=== PATIENT | male | born 1975 | race Caucasian/White ===

== ENCOUNTER 2020-01-17 09:08 | Inpatient (IN) ==
[2020-01-17] MEDS ORDERED: NS 1,000 ML IV ONE ×2 (09:32→11:15)
[2020-01-17] MEDS ORDERED: LOPRESSOR IV ONE (09:32)
--- NOTE | 2020-01-17 09:42 | PROVIDER DOCUMENTATION ---
HPI-General Adult - General Chief Complaint: Palpitations Stated Complaint: palipations Time Seen by Provider: 01/17/20 09:21 Source: patient Allergies/Adverse Reactions: Patient Allergies Allergy/AdvReac Type Severity Reaction Status Date / Time Sulfa (Sulfonamide Allergy RASH Verified 01/17/20 09:41 Antibiotics) Home Medications: Home Medication List Medication Instructions Recorded Confirmed Last Taken Type Lisinopril 5 mg PO DAILY 08/10/19 01/17/20 01/16/20 History Metformin HCl 1,000 mg PO BID 08/10/19 01/17/20 01/16/20 History Metoprolol [Lopressor] 25 mg PO BID PRN #10 tab 08/10/19 01/17/20 01/17/20 Rx Sitagliptin [Januvia] 50 mg PO DAILY 08/10/19 01/17/20 01/15/20 History Ibuprofen 800 mg PO PRN PRN 01/17/20 01/17/20 01/16/20 History - History of Present Illness -Gen Adult Nature of Presenting Problems: 44 YOU MALE REPORTS TACHYPALITATIONS YESTERDAYA ND TODAY. MORE NOTICABLE W/ EX CERTION. PRIOR HX A FIB AND NOT ON ANTICOAGULANTS. CARDOLOGIST DR PÉREZ. TAKES METOPROLOL 25MG PRN BASIS, DM TxED W/ JANUVIA AND METFORMIN. NON-SMOKER. DENIES FEVER OR ILLNESS. NO CP, SL SOB. Review of Systems - Adult - REVIEW OF SYSTEMS - ADULT Constitutional: reports: no symptoms reported, fatique. denies: chills, fever Eyes: reports: no symptoms reported Ears, Nose, Mouth & Throat: reports: no symptoms reported Cardiovascular: reports: no symptoms reported. denies: chest pain, edema Respiratory: reports: no symptoms reported. denies: cough, wheezing Gastrointestinal: reports: no symptoms reported Genitourinary: reports: no symptoms reported Musculoskeletal: reports: no symptoms reported Integumentary: reports: no symptoms reported Neurological: reports: no symptoms reported Psychiatric: reports: no symptoms reported Endocrine: reports: no symptoms reported Hematologic/Lymphatic: reports: no symptoms reported Allergic/Immunologic: reports: no symptoms reported All Other Systems: Reviewed and Negative Past History - Adult - PAST MEDICAL HISTORY-ADULT Review of Records: reports: Old Records Reviewed, Nursing Assessment Review, Medications Reviewed, Social history reviewed & non-contributory. Major Childhood Illnesses: reports: denies history Cardiovascular: reports: denies history, A-Fib (PAST EPISODES) Respiratory: reports: denies history Gastrointestinal: reports: denies history Obstetrical/Gynecological: reports: denies history Genitourinary: reports: denies history Musculoskeletal: reports: denies history Neurological: reports: denies history Endocrine/Immune: reports: denies history Other Conditions: reports: denies history Physical Exam-General - PHYSICAL EXAM-ADULT Initial Vital Signs Reviewed: Yes - CONSTITUTIONAL General Appearance: appears well, alert, no apparent distress - EYES Eyes: PERRL/EOMI - HEAD, EARS, NOSE, MOUTH & THROAT HENMT: normocephalic/atraumatic, moist mucous membranes - NECK Neck: non-tender, full range of motion, supple - RESPIRATORY Respiratory: lungs clear, normal breath sounds, no respiratory distress, no accessory muscle use - CARDIOVASCULAR Cardiovascular: no edema, tachycardia - CHEST (BREASTS) Chest/Breast: other (CHRONIC CHEST ASYMETRY, NON-TENDER) - GASTROINTESTINAL (ABDOMEN) Abdominal Exam: non tender, soft - MUSCULOSKELETAL Extremity: normal range of motion, non-tender, normal gait, normal inspection, no pedal edema, no calf tenderness - SKIN Integumentary: normal color, normal turgor, warm/dry. 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, grossly normal, no motor/sensory deficits - PSYCHIATRIC Psych/Mental Status: normal mood/affect, normal thought content, normal thought process, oriented x 3 Progress - PLAN OF CARE/RESULTS Progress/Plan/Lab Results: Vital Signs - 8 hr 01/17/20 09:13 Temperature 97.1 F L Pulse Rate 139 H Respiratory Rate 20 Blood Pressure 118/92 O2 Sat by Pulse Oximetry 98 Orders Category Date Time Status Cardiac Monitoring DIRECTED Care 01/17/20 09:28 Active NEWS Score 2-4:Order NEWS Lactate Series NOW Care 01/17/20 09:21 Active Saline Loc NOW Care 01/17/20 09:28 Active CHEST-2 VIEWS [RAD] Stat Exams 01/17/20 09:30 Ordered BASIC METABOLIC PANEL [CHEM] Stat Lab 01/17/20 09:29 Ordered CBC WITH ELECTRONIC DIFF [HEME] Stat Lab 01/17/20 09:29 Uncollected D-DIMER [COAG] Stat Lab 01/17/20 09:29 Ordered LACTATE, PLASMA [CHEM] Stat Lab 01/17/20 09:29 Uncollected MAGNESIUM [CHEM] Stat Lab 01/17/20 09:29 Ordered TROPONIN T HIGH SENSITIVITY Stat Lab 01/17/20 09:30 Uncollected URINALYSIS W/POSS RFLX CULT [URINALYSIS] Stat Lab 01/17/20 09:30 Uncollected URINE DRUG SCREEN Stat Lab 01/17/20 09:30 Uncollected 0.9% Sodium Chloride Inj [Ns] 1,000 ml Med 01/17/20 09:32 Active IV 999 mls/hr Metoprolol [Lopressor] Med 01/17/20 09:32 Discontinued 5 mg IV NOW ONE EKG [EKG] Stat Ther 01/17/20 09:29 Ordered Result Diagrams: 01/17/20 09:56 01/17/20 15:13 - REASSESSMENT Reassessment #1 Time Reassessed: 11:08 Status: unchanged (AFTER 1 LITER NS AND LOPRESSOR 5MG: HR 139 IN FLUTTER AND SYS 91. LABS YET PENDING. DENIES CP OR SOB WHILE SUPINE.) Reassessment #2 Time Reassessed: 12:27 Status: unchanged (LAB HAD TO BE REDRAWN AND FINALLY GOT BACK K OF 6.1, Na 131, BS 364 BUT NOT IN DKA, pH 7.38. ABC 8.1, D-DIM NOT ELEVATED. STILL IN FLUTTER 143/min. ?DURATION OF FLUTTER, IS NOT ANTICOAGULATED, GIVING 1/2 AMP BICARB AND CALLING CARDIOLOGY A FLUTTER PERSISTS.) - EKG 1 Time of EKG reading by physician:: 09:19 EKG Read and Signed by:: Yohannes Carney EKG Interpretation (*Must complete 3 of following elements*): Abnormal Rate: 135 Rhythm: FLUTTER [place]: normal QRS: normal [place] Interval: normal ST Wave: non-specific ST changes (A FLUTTER AT 135/MIN) - CONSULTS/PCP/HOSPITALIST Notification #1 *Consult/PCP/Hospitalist*: dr Rodgers Time Discussed: 15:00 Consult Disposition: Admit Departure - Departure Date of Disposition Decision: 01/17/20 Time of Disposition Decision: 15:00 DIAGNOSIS: Tachycardia with heart rate 121-140 beats per minute, Atrial flutter with rapid ventricular response Disposition: ADMITTED INPATIENT 09 Certified Medical Emergency: Emergent Condition: Fair - Critical Care Note This patient required my direct & personal management of CC.: Yes Total Time (mins): 30 Critical Care Statement: This patient required my direct personal management to treat or rule out processes, the absence of which, could potentiallly result in sudden, clinically significant life or limb threatening deterioration. Attestation - Physician/ BRIONNA Attestation Patient care was provided by Advanced Practice Provider:: No The physician spent face to face time with patient:: Yes Advanced Practice Provider documentation review:: Supervising physician onsite and consulted in the evaluation and care of this patient. The physician did have a face to face encounter with the patient.
--- NOTE | 2020-01-17 10:09 | Diag Imaging Result Doc PS360 ---
EXAM: CHEST-2 VIEWS INDICATION: short of breath TECHNIQUE: 2 views COMPARISON: 08/10/2019 FINDINGS: The lungs are grossly clear. There is no discrete pleural fluid collection or pneumothorax. The cardiomediastinal silhouette and central vasculature are grossly unremarkable. IMPRESSION: No evidence of acute pathology by plain radiograph. Electronically signed by Jeffry Segura 01/17/2020 10:07 AM
[2020-01-17 10:38] LABS: URINE SOURCE CLEAN CATCH
[2020-01-17 10:55] LABS: BILIRUBIN URINE NEGATIVE (NEGATIVE); BLOOD URINE NEGATIVE (NEGATIVE); COLOR YELLOW; GLUCOSE URINE >1000 mg/dL (NEGATIVE); KETONE URINE 20 mg/dL (NEGATIVE); LEUKOCYTES URINE NEGATIVE (NEGATIVE); NITRITE URINE NEGATIVE (NEGATIVE); PROTEIN URINE NEGATIVE (NEGATIVE); SP GRAVITY URINE 1.025; TURBIDITY URINE CLEAR (CLEAR); UR AMPHETAMINES QUAL NONE DETECTED (NONE DETECT); UR BARBITUATES QUAL NONE DETECTED (NONE DETECT); UR BENZODIAZEPIN QUAL NONE DETECTED (NONE DETECT); UR CANNABINOIDS QUAL NONE DETECTED (NONE DETECT); UR COCAINE QUAL NONE DETECTED (NONE DETECT); UR METHADONE QUAL NONE DETECTED (NONE DETECT); UR OPIATES QUAL NONE DETECTED (NONE DETECT); UR OXYCODONE QUAL NONE DETECTED (NONE DETECT); UR PCP QUAL NONE DETECTED (NONE DETECT); UROBILINOGEN URINE NORMAL (NORMAL)
[2020-01-17 11:31] LABS: UR EPITHELIAL CELLS <10 /HPF (<10); URINE BACTERIA NEGATIVE /HPF; URINE RBC <10 /HPF (<10); URINE WBC <10 /HPF (<10)
[2020-01-17 11:45] LABS: URINE CRYSTALS NONE SEEN
[2020-01-17 11:46] LABS: ALLEN TEST NO; BE -4.5 mmoll (-3.0-3.0); BLOOD TYPE ARTERIAL; HCO3-(ACT) 21.3 mmoll (20.0-26.0); METHB 1.1 % (0.0-1.5); O2(CT) 23.7 mL/dL (15.0-23.0); O2HB 95.3 % (95.0-99.0); PCO2(98.6) 33 mmHg (35-45); PO2(98.6) 84 mmHg (60-100); SAMPLE BLOOD; SAO2 98.2 % (95.0-100.0); THB 17.7 g/dL (11.5-17.4); pH(98.6) 7.38 (7.35-7.45)
[2020-01-17 11:47] LABS: MODALITY ROOM AIR
[2020-01-17 11:56] LABS: BASO# 0.05 X1000 (0.0-0.2); BASO% 0.6 % (0.0-0.8); EOS# 0.48 X1000 (0.0-0.7); EOS% 5.9 % (0.0-10.0); HEMATOCRIT 51.4 % (42.0-52.0); HEMOGLOBIN 17.4 g/dL (14.0-18.0); LYMPH# 1.16 X1000 (1.2-3.4); LYMPH% 14.2 % (20.5-51.1); MCH 30.3 PG (27-31); MCHC 33.9 g/dL (33-37); MCV 89.5 FL (81-99); MONO# 0.82 X1000 (0.11-0.59); MPV 11.9 FL (7.4-10.4); NEUT# 5.66 X1000 (1.4-6.5); NEUT% 69.3 % (42.2-75.2); PLT 296 X1000 (130-400); RBC 5.74 XMIL (4.7-6.1); RDW 13.4 % (11.5-14.5); WBC 8.17 X1000 (4.8-10.8)
[2020-01-17 11:57] LABS: AGAP 9; BUN 17 mg/dL (8-22); CALCIUM 8.6 mg/dL (8.8-10.2); CHLORIDE 96 mmol/L (98-107); COSMO 279; ESTIMATED GFR > 60; GLUCOSE 364 mg/dL (70-104); SODIUM 131 mmol/L (136-145); TCO2 26 mmol/L (25-35)
[2020-01-17 11:58] LABS: POTASSIUM 6.1 mmol/L (3.5-5.1)
[2020-01-17] MEDS ORDERED: SODIUM BICARBONATE 8.4% IV ONE (12:25)
[2020-01-17] MEDS ORDERED: HUMULIN R IV ONE (12:34)
[2020-01-17] MEDS ORDERED: CARDIZEM 100 MG/NS 100 MG/100 ML IVPB IV SCH (13:00)
[2020-01-17] MEDS ORDERED: NEO-SYNEPHRINE 50 MG in NS 250 ML IV SCH (13:00)
[2020-01-17] MEDS ORDERED: LOPRESSOR PO PRN (15:23)
[2020-01-17] MEDS ORDERED: ZOFRAN IV PRN (15:23)
[2020-01-17 15:41] LABS: AGAP 12; BUN 15 mg/dL (8-22); CALCIUM 8.6 mg/dL (8.8-10.2); CHLORIDE 101 mmol/L (98-107); COSMO 278; CREATININE 0.9 mg/dL (0.7-1.2); ESTIMATED GFR > 60; GLUCOSE 232 mg/dL (70-104); POTASSIUM 4.5 mmol/L (3.5-5.1); SODIUM 135 mmol/L (136-145); TCO2 22 mmol/L (25-35)
[2020-01-17] MEDS ORDERED: COREG PO ONE (15:43)
--- NOTE | 2020-01-17 16:13 | EKG Report ---
Test Performed on : 01/17/2020 2:58:54 PM Test Reason : TACHYCARD Blood Pressure : / mmHG Vent. Rate : 060 BPM Atrial Rate : 060 BPM P-R Int : 156 ms QRS Dur : 084 ms QT Int : 436 ms P-R-T Axes : 052 090 057 degrees QTc Int : 436 ms Normal sinus rhythm. Rightward axis Nonspecific ST abnormality Abnormal ECG When compared with ECG of 17-JAN-2020 09:19, (Unconfirmed) Sinus rhythm. has replaced Atrial flutter. Vent. rate has decreased BY [address] no longer depressed in Inferior leads Nonspecific T wave abnormality now evident in Anterior leads Unconfirmed Result
--- NOTE | 2020-01-17 16:56 | HISTORY AND PHYSICAL ---
CHIEF COMPLAINT: Rapid heart rate and feeling weak. HISTORY OF PRESENT ILLNESS: Mr. Seo is a 44-year-old white male followed by Dr. Titi Ma for type 2 diabetes. He presented around noon today with a 24-hour history of rapid heart rate and feeling weak. His initial EKG documented atrial flutter with rapid ventricular response. The ER physician started IV Cardizem and dropped his rate to 95 to 100. He also has a history of one previous episode of paroxysmal atrial fibrillation in August of last year. He was seen in the emergency room and referred to Dr. Moore at the [facility]. He subsequently underwent echocardiography and a nuclear GXT which were both okay except for a suspected left to right shunt with Valsalva maneuver. His atrial flutter persisted until about 3:15 this afternoon when he converted to sinus rhythm while on the IV Cardizem. This has been stopped. His blood pressure remains low at 80 to 90 systolic blood pressure lying supine. PAST MEDICAL HISTORY: Approximately three years ago he was diagnosed with adult onset diabetes mellitus and has been on metformin and Januvia since. He states he has been out of his fingerstick strips for three to four weeks and has not checked his blood sugar at home. He denies any previous overnight hospital stay with has had outpatient knee surgery. HOME MEDICATIONS: 1. Metformin 1000 mg twice a day. 2. Januvia 50 mg daily. 3. Metoprolol 25 mg twice a day as needed for palpitations and took two doses of this yesterday and one dose this morning. SOCIAL HISTORY: He is single and has no children. He works as a mechanical contractor. He says he quit smoking approximately five years ago. He drank alcohol regularly until his episode of atrial fibrillation and then stopped for several months but resumed recently and has been drinking approximately a six-pack of beer daily. He denies any previous difficulty with abstinence such as tremulousness or hallucinations. REVIEW OF SYSTEMS: GENERAL: He has felt well without any fever, chills, night sweats or weight loss. HEENT: Vision and hearing are adequate without recent changes. RESPIRATORY: No cough, shortness of breath, sputum production, dyspnea on exertion. CARDIOVASCULAR: No history of ischemic heart disease. No history of congestive heart failure or valvular heart disease. No previous syncope or near syncope. GI: Appetite has been adequate. He denies any nausea, vomiting, diarrhea, constipation, or liver disease. : No difficulty voiding. No hematuria or dysuria. ENDOCRINE: No history of thyroid disease. TSH in August was normal. MUSCULOSKELETAL: No arthritis or other joint pain. NEUROPSYCHIATRIC: No history of seizures or strokes. No history of mood disorders. PHYSICAL EXAMINATION: VITAL SIGNS: Blood pressure initially 118/92 now 91/75 after IV Cardizem. His heart rate was initially 143 and now is 80 with normal sinus rhythm on the monitor. Respiratory rate is 16. O2 saturation is 98% on room air. GENERAL APPEARANCE: Middle aged gentleman with a goatee who is alert and cooperative and in no acute distress. HEENT: Pupils are equal, round and reactive to light. Extraocular movements intact. NECK: Supple with normal thyroid and no adenopathy. LUNGS: Clear to auscultation anteriorly and posteriorly. CARDIOVASCULAR: Regular rate and rhythm. No S3 or murmurs are heard. ABDOMEN: Soft and flat with active bowel sounds. EXTREMITIES: No edema. His pedal pulses are very faint in the right foot and absent in the left foot. LABORATORY DATA: CBC is normal. Chemistry profile initially had a potassium of 6.1, but repeat was sodium 135, potassium 4.5, BUN 15, creatinine 0.9, glucose 232. Troponin is slightly elevated at 102. Lactate was 1.1 on his ABG, which otherwise was normal. ASSESSMENT: 1. Paroxysmal atrial flutter with a duration of approximately 24 hours. He also has a history of paroxysmal atrial fibrillation. 2. Diabetes mellitus, probably type 2 although his lean phenotype is somewhat unusual for this. He may be a closet type 1 diabetic, so will get a fasting insulin level tomorrow morning. Will get a C peptide in the morning. TREATMENT PLAN: Will admit to the medical floor now since his arrhythmia has converted. His Cardizem drip has been stopped. Will request a Cardiology consult with consideration of Electrophysiology referral for evaluation for a potential ablation. His ETOH intake is likely a factor in his arrhythmia. Will change his metoprolol to carvedilol for diabetes. cc: Edward Rodgers MD
[2020-01-17] MEDS: NS 1,000 ML IV SCH (17:50)
[2020-01-17] MEDS ORDERED: LOVENOX SUBQ SCH (18:00)
[2020-01-17] MEDS: HUMALOG SUBQ SCH ×2 (18:42→21:16)
[2020-01-17] MEDS: GLUCOPHAGE PO SCH (20:50)
[2020-01-18] MEDS: COREG PO SCH ×2 (00:58→09:45)
[2020-01-18] MEDS: NS 1,000 ML IV SCH (06:03)
[2020-01-18 06:12] LABS: AGAP 12; ALB/GLOB RATIO 2.5; ALBUMIN 3.3 g/dL (3.5-5.0); ALKALINE PHOSPHATASE 43 U/L (32-122); BUN 13 mg/dL (8-22); CALCIUM 8.4 mg/dL (8.8-10.2); CHLORIDE 103 mmol/L (98-107); CK PROFILE 83 U/L (24-204); COSMO 280; CREATININE 0.9 mg/dL (0.7-1.2); ESTIMATED GFR > 60; GLUCOSE 173 mg/dL (70-104); GOT 7 U/L (10-34); GPT 9 U/L (10-44); POTASSIUM 4.5 mmol/L (3.5-5.1); SODIUM 138 mmol/L (136-145); TCO2 23 mmol/L (25-35); TOTAL PROTEIN 4.6 g/dL (6.3-8.3)
[2020-01-18] MEDS: HUMALOG SUBQ SCH (06:40)
[2020-01-18] MEDS ORDERED: PRINIVIL PO SCH (09:00)
[2020-01-18] MEDS ORDERED: JANUVIA PO SCH (09:00)
--- NOTE | 2020-01-18 09:30 | EKG Report ---
Test Performed on : 01/18/2020 09:19:41 AM Test Reason : tachycardia Blood Pressure : / mmHG Vent. Rate : 058 BPM Atrial Rate : 058 BPM P-R Int : 130 ms QRS Dur : 092 ms QT Int : 448 ms P-R-T Axes : 065 081 073 degrees QTc Int : 439 ms Sinus bradycardia. Otherwise normal ECG When compared with ECG of 17-JAN-2020 14:58, (Unconfirmed) No significant change was found Confirmed by Delmer Ma MD ([id number]) on 01/19/2020 7:37:33 PM
[2020-01-18] MEDS: GLUCOPHAGE PO SCH (09:45)
[2020-01-18] MEDS ORDERED: ASPIRIN PO SCH (10:15)
--- NOTE | 2020-01-18 10:45 | CONSULTATION ---
DATE OF CONSULTATION: 01/18/2020 IMPRESSION: 1. Episode of atrial flutter with rapid ventricular rate spontaneously converted back to sinus rhythm. Patient has history of sporadic palpitations perhaps once of twice a month of more limited duration. 2. Type 2 diabetes mellitus. 3. Excessive alcohol consumption at a rate of 6 pack of beer daily. RECOMMENDATIONS: 1. Favor staying with metoprolol given absence of hypertension and tendency for relatively lower blood pressure already evident on MISTY inhibitor prescribed for renal protection with his diabetes. 2. Chads Vasc score limited at 1. Suggest aspirin p.o. daily. 3. Reasonable for patient to be discharged since he converted back to sinus rhythm. I will see him again in approximately 2 weeks. At this point, consider possible referral for electrophysiology consult and possible ablation. 4. Curbing alcohol intake strongly advised. HISTORY: This 44-year-old, white male with past history of recurrent palpitations and type 2 diabetes mellitus, was admitted to the emergency room for management of atrial flutter with rapid ventricular rate. He relates that he started having palpitations the day before yesterday that were rather persistent. There are no other associated symptoms. He came to emergency room and was found to be in atrial flutter with rapid ventricular rate. He was started on intravenous Cardizem. He has converted back to sinus rhythm spontaneously yesterday afternoon. He continues asymptomatic from a cardiovascular standpoint. He has history of previous atrial tachyarrhythmia last fall, noninvasive cardiac evaluation was negative with exception of possible [id number] intracardiac shunt following Valsalva maneuver, potentially related to a small PFO. PAST MEDICAL HISTORY: 1. Adult onset diabetes mellitus. 2. Chronic regular alcohol use, a six-pack of beer daily. 3. Status post unspecified knee surgery. ALLERGIES: He is allergic or intolerant to sulfa. MEDICATIONS PRIOR TO ADMISSION: As listed. SOCIAL HISTORY: He works doing mechanical work. He drinks 6 pack of beer daily. FAMILY HISTORY: Negative for premature coronary disease. REVIEW OF SYSTEMS: Pulmonary: Negative. Gastrointestinal: Negative. Constitutional: Negative. Remaining review of systems negative/noncontributory with 14 total systems reviewed. PHYSICAL EXAMINATION: General: Reveals an adult white male in no distress. Vital signs: Blood pressure 101/52, heart rate 64 and regular with ECG monitor showing sinus rhythm. Oxygen saturation 98% on room air. HEENT: Extraocular movements intact. Mucous membranes are moist. Neck: Supple. No jugular venous distention. There are no carotid bruits. Chest: Clear to auscultation. Cardiac Exam: Reveals a regular rate and rhythm without appreciable murmur or gallop. Abdomen: Soft. Bowel sounds normal. Extremities: Without edema. Neurologic: Alert and fully oriented. Speech is fluent. Moves all 4 extremities equally well. Skin: Warm and dry. Psychiatric: Reveals mood to be appropriate. DIAGNOSTIC DATA: A 12 lead EKG demonstrates sinus rhythm and is within normal limits. LABORATORY DATA: Includes sodium 138, potassium 4.5, chloride 103, carbon dioxide 23, BUN 13, creatinine 0.9, glucose 173. Initial troponin T 102. Follow-up troponin T 220. CPK 83. Followup CPK pending. White blood cell count 8.17, hematocrit 51.4, hemoglobin 17.4, platelet count 296. cc: MD Edward Samson MD
[2020-01-18 12:32] VITALS: BP 107/65
[2020-01-18] MEDS ORDERED: LOPRESSOR PO SCH (21:00)
--- NOTE | 2020-01-19 08:43 | DISCHARGE SUMMARY ---
ADMISSION DATE: 01/17/2020 DISCHARGE DATE: 01/18/2020 FINAL DIAGNOSES: 1. Atrial flutter with rapid ventricular rate. 2. Type 2 diabetes mellitus. 3. Excessive alcohol use. PRESENT ILLNESS: Mr. Seo is a 44-year-old white male with a history of recurrent palpitations and type 2 diabetes mellitus. He presented to the emergency room on the day of admission with approximately 24 hour history of rapid heart rate and was determined to be in atrial flutter with ventricular response of approximately 135 although his conduction alternated between 2:1 and 3:1. He denied any shortness of breath, chest pain, or near syncope. He related a 3 year history of type 2 diabetes mellitus treated with metformin and Januvia. Because of his previous palpitations, he had been previously evaluated by Dr. Moore at the [facility]. Physical examination revealed a slender, middle-aged gentleman in no acute distress. Lungs were clear. Cardiac exam: Irregularly irregular rhythm with tachycardia but no S3 or murmurs. Electrocardiogram confirmed atrial flutter with variable conduction and rapid ventricular response. HOSPITAL COURSE: In the emergency room, he was started on intravenous Cardizem, which slowed his rate to approximately 95-100. His fingerstick blood sugars were somewhat elevated over 300 and he also had a potassium of 6.1 on initial evaluation and was given intravenous bicarbonate, insulin, and normal saline. Followup potassium after approximately 6 hours was normal. While in the emergency room, he converted spontaneously to normal sinus rhythm. He maintained normal sinus rhythm throughout the rest of his hospital stay. He was seen in consultation by Dr. Moore, who recommended continuing his metoprolol twice a day every day and not just p.r.n. He was also to begin an aspirin daily and to discontinue his alcohol intake. He admitted to reducing his alcohol intake quite a bit 6 months ago when the palpitations started but he had recently resumed approximately a 6 pack of beer a day and it was emphasized to him the importance of abstinence. He is discharged in improved condition and is to follow up with his primary care practitioner Dr. Titi Ma in 8-14 days. He is to see Dr. Moore in approximately 2 weeks as well for consideration of referral to an manager rn case regarding a potential ablation procedure. DISCHARGE MEDICATIONS: Metoprolol 25 mg twice a day, aspirin 81 mg daily. Metformin and Januvia as before. Pending at the time of discharge is a C-peptide level to determine his degree of insulin production. Due to his phenotype, he was suspected of possibly having type 1 diabetes. C-peptide results were just below the lower limit of normal. cc: Edward Rodgers MD MTDD
== END 2020-01-18 13:26 | disposition home or self-care (01) | DRG 310 ==
LOC: EDIPHOLD 09:08 → ED 09:08 → OBSVTOIN 13:57 → 1N 20:09
PROVIDERS: ADMIT Internal Medicine; ATTEND Internal Medicine